=== PATIENT | female | born 1970 | race Asian ===

== ENCOUNTER 2022-11-09 13:41 | Observation (INO) | payer BC, OTHER ==
[2022-11-09 14:27] LABS: Absolute Lymphocytes (CBC) 1.8 K/uL (0.7-4.9); Hematocrit 38.5 % (36.0-45.0); MCV 82.7 fL (80-100); MPV 9.4 fL (7.6-11.3); RBC Red Blood Cell Count 4.66 M/uL (3.86-4.86)
[2022-11-09] MEDS ORDERED: NA CHLORIDE 0.9% 500 ML ONE ×3 (14:30→17:09)
--- NOTE | 2022-11-09 14:33 | RAD REPORT ---
EXAM DESCRIPTION: [facility] Single View11/09/2022 2:22 pm CLINICAL HISTORY: Chest pain COMPARISON: 2016 FINDINGS: The lungs appear clear of acute infiltrate. The heart is normal size IMPRESSION: No acute abnormalities displayed
[2022-11-09 14:51] LABS: Protime INR 1.04
[2022-11-09] MEDS ORDERED: CLOPIDOGREL 75 MG TABLET ONE (14:51)
[2022-11-09 14:55] LABS: Bilirubin Direct 0.1 mg/dL (0-0.2); Bilirubin Total 0.3 mg/dL (0.2-1.0); Magnesium 2.1 mg/dL (1.6-2.4); Potassium 3.7 mmol/L (3.5-5.1); Protein, Total 7.5 g/dL (6.4-8.2); Troponin High Sensitivity 3.7 pg/mL (<58.9)
[2022-11-09] MEDS ORDERED: MORPHINE 2 MG/ML SYR ONE (15:20)
--- NOTE | 2022-11-09 16:05 | RAD REPORT ---
EXAM DESCRIPTION: CT - Angio Aorta For Dissection - 11/09/2022 3:40 pm CLINICAL HISTORY: . Chest and abd pain COMPARISON: None TECHNIQUE: Computed tomography angiography of the chest, abdomen pelvis were obtained. 90 cc Isovue 370 was administered intravenously. Coronal and sagittal reconstruction were performed. MIP 3D reconstruction was performed All CT scans are performed using dose optimization technique as appropriate and may include automated exposure control or mA/KV adjustment according to patient size. FINDINGS: An aortic dissection is not seen. An aortic aneurysm is not displayed. Wuov-vi-ufzdlaik narrowing celiac artery SMA and ULI are patent . A lung consolidation is not present. A pericardial effusion is not seen. A pleural effusion is not no shekhar. Duodenal diverticulum The liver,spleen, pancreas,adrenals and kidneys demonstrate no significant abnormality. There no evidence diverticulitis. A normal appendix IMPRESSION: Negative for an aortic dissection.
--- NOTE | 2022-11-09 16:36 | ER ---
Nurse's Notes [facility] Name: Vickie Gill Age: 52 yrs Sex: Female : 1970 Arrival Date: 11/09/2022 Time: 13:43 Bed 20 Private MD: Diagnosis: Angina pectoris, unspecified Presentation: 11/09 13:55 Chief complaint: Patient states: CP that began earlier today. Pt reports that she has ss been experiencing CP that comes and goes sporadically over a few months, but today is much worse, pressure. Coronavirus screen: Client denies travel out of the [place] in the last 14 days. Ebola Screen: Patient denies exposure to infectious person. Patient denies travel to an Ebola-affected area in the 21 days before illness onset. Initial Sepsis Screen: Does the patient meet any 2 criteria? No. Patient's initial sepsis screen is negative. Does the patient have a suspected source of infection? No. Patient's initial sepsis screen is negative. Risk Assessment: Do you want to hurt yourself or someone else? Patient reports no desire to harm self or others. Onset of symptoms was November 09, 2022. 13:55 Method Of Arrival: Ambulatory ss 13:55 Acuity: MARYBEL 3 ss Historical: - Allergies: 13:57 Ibuprofen; ss - Home Meds: 13:57 symbicort [Active]; ss - PMHx: 13:57 Asthma; ss - PSHx: 13:57 oral; ss - Immunization history:: Client reports receiving the 2nd dose of the Covid vaccine. - Social history:: Smoking status: Patient denies any tobacco usage or history of. Screenin:58 [facility] ED Fall Risk Assessment (Adult) History of falling in the last 3 months, ss including since admission No falls in past 3 months (0 pts). Abuse screen: Denies threats or abuse. Denies injuries from another. Nutritional screening: No deficits noted. Tuberculosis screening: Never had TB. Assessment: 14:49 Reassessment: Patient and/or family updated on plan of care and expected duration. Pain kr3 level reassessed. Patient is alert, oriented x 3, equal unlabored respirations, skin warm/dry/pink. Patient states feeling better. 15:50 Reassessment: Patient and/or family updated on plan of care and expected duration. Pain kr3 level reassessed. Patient is alert, oriented x 3, equal unlabored respirations, skin warm/dry/pink. 19:14 Pain: Complains of pain in chest Pain currently is 5 out of 10 on a pain scale. kr3 Vital Signs: 13:55 BP 94 / 56; Pulse 71; Resp 18; Temp 98.2(O); Pulse Ox 100% on R/A; Weight 50 kg; Height ss 5 ft. 2 in. (157.48 cm); 14:00 BP 114 / 68; Pulse 74; Resp 17; Pulse Ox 100% on R/A; kr3 14:38 BP 114 / 82 LA; Pulse 62; Resp 17; Pulse Ox 100% on R/A; kr3 14:38 BP 123 / 69 RA; Pulse 63; Resp 17; Pulse Ox 98% on R/A; kr3 13:55 Body Mass Index 20.16 (50.00 kg, 157.48 cm) ss ED Course: 13:43 Patient arrived in ED. am2 13:48 Serafin Negron PA is PHCP. cp 13:48 Remi Barnhart MD is Attending Physician. cp 13:57 Triage completed. ss 13:57 Arm band placed on right wrist. ss 13:58 Patient has correct armband on for positive identification. Placed in gown. Bed in low ss position. Call light in reach. Side rails up X 1. Client placed on continuous cardiac and pulse oximetry monitoring. NIBP monitoring applied. Warm blanket given. 13:58 Patient maintains SpO2 saturation greater than 95% on room air. ss 14:10 Inserted saline lock: 22 gauge in right antecubital area, using aseptic technique. ss Blood collected. 14:22 Tiffany Luevano, KIRA is Primary Nurse. kr3 16:30 Horacio Lucero MD is Hospitalizing Provider. cp 18:11 SARS RAPID Sent. kr3 20:30 No provider procedures requiring assistance completed. Patient admitted, IV remains in vc1 place. Administered Medications: 14:09 Not Given (Physician Discretion): Ketorolac 15 mg IVP once ss 14:37 Drug: NS 0.9% 500 ml Route: IV; Rate: bolus; Site: right antecubital; kr3 14:49 Drug: PlaVIX (clopidogrel) 75 mg Route: PO; kr3 15:24 Drug: morphine 2 mg Route: IVP; Infused Over: 4 mins; Site: right antecubital; kr3 17:14 Drug: NS 0.9% 500 ml Route: IV; Rate: bolus; Site: right antecubital; kr3 17:14 Drug: Lovenox (enoxaparin) 40 mg Route: Sub-Q; Site: abdomen; kr3 19:14 Drug: morphine 2 mg Route: IVP; Infused Over: 4 mins; Site: right antecubital; kr3 Medication: 13:58 VIS not applicable for this client. ss Outcome: 16:35 Decision to Hospitalize by Provider. cp 20:30 Admitted to Med/surg accompanied by tech, via wheelchair, room 221. vc1 20:30 Condition: good 20:30 Instructed on the need for admit. 20:31 Patient left the ED. vc1 Signatures: Hoa Gonzales RN RN Serafin Negron PA PA cp Judith Back am2 Jayshree Cardenas RN RN vc1 Tiffany Luevano RN RN kr3 Corrections: (The following items were deleted from the chart) 14:45 14:38 BP 114 / 82; Pulse 62bpm; Resp 17bpm; Pulse Ox 100% RA; kr3 kr3
--- NOTE | 2022-11-09 16:36 | EDPHYS ---
Physician Documentation [facility] Name: Vickie Gill Age: 52 yrs Sex: Female : 1970 Arrival Date: 11/09/2022 Time: 13:43 Bed 20 Private MD: ED Physician Remi Barnhart HPI: 11/09 13:58 This 52 yrs old Female presents to ER via Ambulatory with complaints of Chest cp Pain. 13:58 The patient or guardian reports chest pain that is located primarily in the anterior cp chest wall, left. Onset: intermittent for months, returned today while at work. 13:58 Associated signs and symptoms: Pertinent positives: left arm numbness, Pertinent cp negatives: abdominal pain, cough, diaphoresis, lower extremity pain, lower extremity swelling, shortness of breath. The chest pain is described as a pressure. Duration: The patient or guardian reports a single episode, that is still ongoing, and unchanged, started today while at work. Historical: - Allergies: 13:57 Ibuprofen; ss - Home Meds: 13:57 symbicort [Active]; ss - PMHx: 13:57 Asthma; ss - PSHx: 13:57 oral; ss - Immunization history:: Client reports receiving the 2nd dose of the Covid vaccine. - Social history:: Smoking status: Patient denies any tobacco usage or history of. ROS: 14:00 Constitutional: Negative for body aches, chills, fever, poor PO intake. cp 14:00 Eyes: Negative for injury, pain, redness, and discharge. cp 14:00 ENT: Negative for drainage from ear(s), ear pain, sore throat, difficulty swallowing, difficulty handling secretions. 14:00 Cardiovascular: Positive for chest pain, Negative for edema, palpitations. 14:00 Respiratory: Negative for cough, shortness of breath, wheezing. 14:00 Abdomen/GI: Negative for abdominal pain, vomiting, diarrhea, constipation. 14:00 Back: Negative for pain at rest, pain with movement, radiated pain. 14:00 MS/extremity: Positive for paresthesias, of the left arm. 14:00 Neuro: Negative for altered mental status, dizziness, headache, syncope, weakness. 14:00 All other systems are negative. Exam: 14:05 Constitutional: The patient appears in no acute distress, alert, awake, cp non-diaphoretic, non-toxic, well developed, well nourished, uncomfortable. 14:05 Head/Face: Normocephalic, atraumatic. cp 14:05 Eyes: Periorbital structures: appear normal, Conjunctiva: normal, no exudate, no cp injection, Sclera: no appreciated abnormality, Lids and lashes: appear normal, bilaterally. 14:05 ENT: External ear(s): are unremarkable, Nose: is normal, Mouth: is normal, Posterior pharynx: is normal, airway is patent, no erythema, no exudate. 14:05 Neck: ROM/movement: is normal, is supple, without pain, no range of motions limitations. 14:05 Chest/axilla: Inspection: normal. 14:05 Cardiovascular: Rate: normal, Rhythm: regular, Edema: is not appreciated, JVD: is not appreciated. 14:05 Respiratory: the patient does not display signs of respiratory distress, Respirations: normal, no use of accessory muscles, no retractions, labored breathing, Breath sounds: are clear throughout, no decreased breath sounds, no stridor, no wheezing. 14:05 Abdomen/GI: Inspection: abdomen appears normal, Bowel sounds: active, all quadrants, Palpation: abdomen is soft and non-tender, in all quadrants. 14:05 Back: pain, is absent, ROM is normal. 14:05 Musculoskeletal/extremity: the left arm numbness. 14:05 Neuro: Orientation: to person, place \T\ time. Mentation: is normal, Motor: moves all fours, strength is normal. 14:07 ECG was reviewed by the Attending Physician. cp Vital Signs: 13:55 BP 94 / 56; Pulse 71; Resp 18; Temp 98.2(O); Pulse Ox 100% on R/A; Weight 50 kg; Height ss 5 ft. 2 in. (157.48 cm); 14:00 BP 114 / 68; Pulse 74; Resp 17; Pulse Ox 100% on R/A; kr3 14:38 BP 114 / 82 LA; Pulse 62; Resp 17; Pulse Ox 100% on R/A; kr3 14:38 BP 123 / 69 RA; Pulse 63; Resp 17; Pulse Ox 98% on R/A; kr3 13:55 Body Mass Index 20.16 (50.00 kg, 157.48 cm) ss MDM: 13:49 Patient medically screened. cp 14:00 Differential diagnosis: abnormal EKG, acute myocardial infarction, pericarditis, cp pleurisy, pneumonia, pneumothorax, pulmonary embolus, stable angina, thoracic aortic disection, unstable angina. 16:25 The patient was not given aspirin in the Emergency Department. Not indicated due to cp patient's past medical history. Data reviewed: vital signs, nurses notes, lab test result(s), EKG, radiologic studies, CT scan, plain films. ED course: patient discussed with DR Lucero who will admit for cardiac r/o. 11/09 13:53 Order name: Basic Metabolic Panel cp 11/09 13:53 Order name: CBC with Diff 11/09 13:53 Order name: D-Dimer 11/09 13:53 Order name: LFT's 11/09 13:53 Order name: Magnesium 11/09 13:53 Order name: NT PRO-BNP 11/09 13:53 Order name: PT-INR 11/09 13:53 Order name: Troponin HS 11/09 13:53 Order name: XRAY Chest (1 view) 11/09 13:53 Order name: EKG; Complete Time: 13:54 cp 11/09 13:53 Order name: Cardiac monitoring; Complete Time: 14:10 cp 11/09 13:53 Order name: EKG - Nurse/Tech; Complete Time: 14:10 cp 11/09 13:53 Order name: IV Saline Lock; Complete Time: 14:10 cp 11/09 13:53 Order name: Labs collected and sent; Complete Time: 14:10 cp 11/09 13:53 Order name: O2 Per Protocol; Complete Time: 14:10 cp 11/09 13:53 Order name: O2 Sat Monitoring; Complete Time: 14:10 cp 11/09 13:57 Order name: Blood Pressure Recheck: bilateral upper extremity; Complete Time: 14:41 cp 11/09 14:33 Order name: RAD; Complete Time: 14:35 EDMS 11/09 14:34 Order name: CBC with Automated Diff; Complete Time: 14:35 EDMS 11/09 14:51 Order name: Protime (+INR); Complete Time: 15:34 EDMS 11/09 14:51 Order name: D-Dimer; Complete Time: 15:34 EDMS 11/09 15:34 Interpretation: Reviewed. cp 11/09 14:52 Order name: CT Aorta for Dissection cp 11/09 14:56 Order name: Basic Metabolic Panel; Complete Time: 15:34 EDMS 11/09 15:34 Interpretation: Normal except: CL 109. cp 11/09 14:56 Order name: Liver (Hepatic) Function; Complete Time: 15:34 EDMS 11/09 14:56 Order name: Troponin High Sensitivity; Complete Time: 15:34 EDMS 11/09 14:56 Order name: NT PRO-BNP; Complete Time: 15:34 EDMS 11/09 14:56 Order name: Magnesium; Complete Time: 15:34 EDMS 11/09 16:05 Order name: CT; Complete Time: 16:15 EDMS 11/09 16:16 Interpretation: Report reviewed. cp 11/09 17:12 Order name: SARS RAPID eb 11/09 18:19 Order name: Troponin High Sensitivity EDMS 11/09 18:21 Order name: SARS-COV-2 Antigen Rapid EDMS EC:07 Rate is 67 beats/min. Rhythm is regular. RI interval is normal. QRS interval is normal. cp QT interval is normal. Interpreted by me. Reviewed by me. Administered Medications: 14:09 Not Given (Physician Discretion): Ketorolac 15 mg IVP once ss 14:37 Drug: NS 0.9% 500 ml Route: IV; Rate: bolus; Site: right antecubital; kr3 14:49 Drug: PlaVIX (clopidogrel) 75 mg Route: PO; kr3 15:24 Drug: morphine 2 mg Route: IVP; Infused Over: 4 mins; Site: right antecubital; kr3 17:14 Drug: NS 0.9% 500 ml Route: IV; Rate: bolus; Site: right antecubital; kr3 17:14 Drug: Lovenox (enoxaparin) 40 mg Route: Sub-Q; Site: abdomen; kr3 19:14 Drug: morphine 2 mg Route: IVP; Infused Over: 4 mins; Site: right antecubital; kr3 Disposition Summary: 11/09/22 16:35 Hospitalization Ordered Hospitalization Status: Observation cp Provider: Horacio Lucero cp Location: Telemetry/MedSurg (observation) cp Condition: Stable cp Problem: new cp Symptoms: have improved cp Bed/Room Type: Standard cp Room Assignment: 221(11/09/22 19:29) cg Diagnosis - Angina pectoris, unspecified cp Forms: - Medication Reconciliation Form cp - SBAR form cp Signatures: Dispatcher [employer] Hoa Calzada RN RN ss Serafin Negron PA PA cp Garcia, Cindy, RN RN cg Tiffany Luevano RN RN kr3 Corrections: (The following items were deleted from the chart) 19:29 16:35 cp cg
[2022-11-09] MEDS ORDERED: ONDANSETRON 4 MG/2 ML VIAL IV PRN (16:54)
[2022-11-09] MEDS ORDERED: MORPHINE 2 MG/ML SYR IM PRN (16:55)
[2022-11-09] MEDS ORDERED: ENOXAPARIN 40 MG/0.4 ML SQ ONE (17:09)
[2022-11-09 18:21] LABS: SARS-CoV-2 Antigen Rapid Res Negative (Negative)
[2022-11-09 18:25] VITALS: BMI 20.1
[2022-11-10 01:12] VITALS: O2SAT 100
[2022-11-10 02:51] LABS: Absolute Lymphocytes (CBC) 3.2 K/uL (0.7-4.9); Hematocrit 36.9 % (36.0-45.0); Lymphocytes % 48.7 % (15.3-44.8); MCV 83.2 fL (80-100); MPV 9.1 fL (7.6-11.3); RBC Red Blood Cell Count 4.43 M/uL (3.86-4.86)
[2022-11-10 02:59] LABS: Potassium 3.5 mmol/L (3.5-5.1)
[2022-11-10 03:44] LABS: Blood Morphology Comment NOT SEEN (NOT SEEN); Platelet Estimate ADEQ
[2022-11-10] MEDS ORDERED: ASPIRIN EC 81 MG TAB PO SCH (09:00)
[2022-11-10 09:13] VITALS: BP 114/59; TEMP 97.9
--- NOTE | 2022-11-10 16:40 | EKG ---
Test Date: 2022-11-09 Test Time: 14:04:01 C 40A Crew Chief: ASHVIN MEASUREMENT RESULTS: Intervals: Rate: 67 MI: 182 QRSD: 78 QT: 390 QTc: 412 Burton: P: 77 MI: 182 QRS: 82 T: 76 INTERPRETIVE STATEMENTS: Normal sinus rhythm Normal ECG No previous ECG available for comparison Electronically Signed On 11-10-22 16:36:59 PRODUCTION ASSOCIATE by Keron Witt
--- NOTE | 2022-11-10 18:11 | P.SSS ---
Patient History Date of Service: 11/10/22 Reason for admission: CHEST PAIN History of Present Illness: SAEED IS HEALTHY NON OBESE LADY WITH MILD ASTHMA COMES WITH CHEST PRESSURE THAT FELT BETTER WITH PRESSURE WITH HAND. SHE IS NURSE. SHE HAD SOME ARM NUMBNESS. SHE HAS SEEN DR. PANG AND WILL DO STRESS TEST AT HIS OFFICE. Allergies ibuprofen Allergy (Verified 11/09/22 20:44) Shortness of breath Home medications list reviewed: Yes Home Medications: Budesonide/Formoterol Fumarate [Symbicort 160-4.5 Mcg Inhaler] 1 puff IH PRN 11/09/22 - Social History Smoking Status: Never smoker Alcohol use: No CD- Drugs: No Caffeine use: Yes Place of Residence: Home Review of Systems 10-point ROS is otherwise unremarkable Physical Examination - Vital Signs Temperature: 97.9 F Blood Pressure: 114/59 Pulse: 64 Respirations: 17 Pulse Ox (%): 97 - Physical Exam General: Alert, In no apparent distress HEENT: Atraumatic, PERRLA, Mucous membr. moist/pink, EOMI, Sclerae nonicteric Neck: Supple, 2+ carotid pulse no bruit, No LAD, Without JVD or thyroid abnormality Respiratory: Clear to auscultation bilaterally, Normal air movement Cardiovascular: Regular rate/rhythm, Normal S1 S2 Gastrointestinal: Normal bowel sounds, No tenderness Musculoskeletal: No tenderness Integumentary: No rashes Neurological: Normal gait, Normal speech, Normal strength at 5/5 x4 extr, Normal tone, Normal affect Lymphatics: No axilla or inguinal lymphadenopathy - Diagnosis (Problem(s)) (1) Atypical chest pain Status: Acute Plan: THE PAIN SEEMS NON CARDIAC IN ORIGIN. SHE IS STABLE TO GO HOME FU WITH DR. PANG. EKG NORMAL TROP NORMAL CT DISSECTION PROTOCOL NORMAL - Disposition Disposition: ROUTINE DISCHARGE
--- NOTE | 2022-11-10 23:08 | CON ---
Date of Consultation: 11/10/2022 Reason For Consultation: Chest pain. History Of Present Illness: A 52-year-old female with no significant past medical history presented with chest pain on and off in the past few weeks, left-sided, not related to exertion and no shortnes s of breath. No nausea, vomiting, or diarrhea. She was monitored overnight and cardiac enzymes have been negative and she feels good today, wants to go home. Past Medical History: None. Medications: Refer reconciliation sheet for detailed list. Allergies: IBUPROFEN. Family History: No premature coronary artery disease or cancer. Social History: She does not smoke or drink. Does not use any drugs. Review of Systems: All systems reviewed and they were negative except for mentioned in the HPI. Physical Examination: Vital Signs: Reviewed. Head and Neck: Pupils are equal, reactive to light. Intact eye movements. No JVD. No cervical lym phadenopathy. Neck is supple. Thyroid is not enlarged. Lungs: Clear to auscultation bilaterally. No rhonchi, wheezing, or crackles. No accessory muscle u se. Heart: Regular rate and rhythm. No extra sounds. Abdomen: Soft, nontender. Bowel sounds positive. No organomegaly. No masses or hernia. No rigidi ty or rebound. Extremities: No edema, clubbing, cyanosis. Intact pulses. Skin: No rash. Neurologic: Alert, awake, and oriented x3. No acute focal deficits appreciated. Investigations: Cardiac enzymes x4 and negative. BUN 7, creatinine 0.64, and hemoglobin is 7.9. Assessment/recommendations: Chest pain is atypical. Cardiac enzymes are negative patient can be rel eased. Follow up as an outpatient. We will obtain exercise stress test and an echo on outpatient ba sis. Thank you for the consult. SR/MODL Voice ID: [id number] Report ID: [id number]
== END 2022-11-10 09:26 | disposition home or self-care (01) ==
LOC: ER 13:41 → ERHOLD 16:52 → 2ND 19:57
PROVIDERS: ADMIT Internal Medicine; ATTEND Internal Medicine
DX: R07.89 Other chest pain (principal); J45.909 Unspecified asthma, uncomplicated; Z88.6 Allergy status to analgesic agent; Z20.822 Contact with and (suspected) exposure to COVID-19
CPT/HCPCS: 93005; 85025 ×2; 80048 ×2; 36415; 83735; 85610; 85379; 80076; 84484 ×4; 83880; 71275; 74175; 71045; 96372; 96374; 99285; 87811; Q9967; J1650; J2270 ×2; J7040 ×3; G0378